=== PATIENT | female | born 1975 | race Caucasian/White ===

== ENCOUNTER → 2018-07-22 14:57 | Outpatient (CLI) | payer OTHER, SELFPAY ==
--- NOTE | 2018-07-22 15:01 | MM_ITS ---
MM Dig screening mamm BI w/CAD CAD Screening COMPARISON: Digital mammograms with CAD 08/19/2015 and 08/10/2014 INDICATION: There is a history breast cancer patient's maternal aunt diagnosed at age 29 TECHNIQUE: Standard CC and MLO images were obtained. R2 CAD reviewed. FINDINGS: There is a diffusely dense and heterogenic parenchymal pattern lessening the sensitivity of mammography. The findings are most prominent in the subareolar regions. There are few scattered benign-appearing calcifications in each breast. There are additional benign-appearing calcifications medially near the cleavage which are likely cutaneous. There is no suspicious lesion in either breast and there are no suspicious microcalcifications. IMPRESSION: Dense parenchymal pattern with no suspicious lesion seen BI-RADS Category: 2 Benign Finding(s) RECOMMENDED FOLLOW-UP: 1YR - 1 YEAR FOLLOW-UP (A letter has been sent to the patient regarding results of the study.)
== END ==
PROVIDERS: Family Provider Physician Assistant; PCP Physician Assistant; Visit Provider Nurse Practitioner Obstetrics & Gynecology
DX: Z12.31 Encounter for screening mammogram for malignant neoplasm of breast (principal)
CPT/HCPCS: 77067

== ENCOUNTER 2018-12-22 18:34 | Emergency (ER) | payer OTHER, SELFPAY ==
[2018-12-22 19:03] VITALS: BP 127/79; PULSE 102; RESP 16; TEMP 37.2; O2SAT 98; BMI 41.1
[2018-12-22 19:17] LABS: Apearance,Urine Clear (Clear); Bilirubin,Urine Negative (Negative); Blood, Urine Negative (Negative); Color,Urine Yellow (Yellow); Glucose,Urine (UA) Negative (Negative); Ketones,Urine Negative (Negative); PH,Urine 5.5 (5.0-8.5); Protein,Urine Negative (Negative); Specific Gravity, Urine 1.025 (1.005-1.030); UTC Leukocyte Esterase,Urine Negative (Negative); UTC Nitrate,Urine Negative (Negative); Urobilinogen,Urine 0.2 EU/dl (0.2)
[2018-12-22 19:19] VITALS: BP 127/79; PULSE 102; RESP 16; TEMP 37.2; O2SAT 98; BMI 39.9
--- NOTE | 2018-12-22 19:53 | HMH.EDUTC ---
[facility] Disposition Clinical Impression: Back pain Qualifiers: Back pain location: low back pain Chronicity: acute Back pain laterality: left Sciatica presence: without sciatica Qualified Code(s): M54.5 - Low back pain Disposition: Home, Self-Care Condition on Discharge: Good Instructions: Low Back Pain Additional Instructions: Take the medications as prescribed. Follow up with your regular doctor. Call them in the morning and get a f/u appointment. The muscle relaxer (flexeril) will make you drowsy, so don't be driving or operating heavy machinery while on it. Rest your back, apply heat or ice as tolerated if it helps. Don't burn yourself with a heating pad if you use one. GO TO THE ER IF YOU HAVE ANY WORSENING OR LIFE THREATENING SYMPTOMS Prescriptions: Cyclobenzaprine HCl [Flexeril 10mg tablet] 10 mg PO TIDP PRN #30 tablet PRN Reason: Muscle Spasm methylPREDNISolone [Medrol] 4 mg PO DIRECTED 6 Days #21 tab.[email or web address] Referrals: Katja Deutsch [Primary Care Provider] - Time of Disposition: 20:17 Medical Decision Making - Medical Records Medical records reviewed: No: I reviewed the patient's medical records. - Anirudh Inquiry Pt receiving controlled substance: No Anirudh was queried for this patient: No Vital Signs: 12/22/18 19:03 12/22/18 19:19 12/22/18 20:17 Temperature 98.9 F 98.9 F 98.8 F Temperature Source Oral Oral Oral Pulse Rate 98 H Pulse Rate [Left Radial] 102 H 102 H Respiratory Rate 16 16 18 Blood Pressure 122/76 Blood Pressure [Right Arm] 127/79 127/79 Blood Pressure Mean [Right Arm] 95 95 Blood Pressure Source [Right Arm] Automatic Cuff Blood Pressure Position [Right Arm] Sitting 02 Sat by Pulse Oximetry 98 98 Oxygen Delivery Method Room Air Room Air Room Air - Lab Data Lab results reviewed: Yes: I reviewed the patient's lab results. Lab Results 12/22/18 19:15: Urine Color Yellow, Urine Appearance Clear, Urine pH 5.5, Ur Specific [place] 1.025, Urine Protein Negative, Urine Glucose (UA) Negative, Urine Ketones Negative, Urine Blood Negative, Urine Nitrate Negative, Urine Bilirubin Negative, Urine Urobilinogen 0.2, Ur Leukocyte Esterase Negative Orders (Tests/Meds): ED MEDICATIONS Discontinued Medications Generic Name Dose Route Start Last Admin Trade Name Dax PRN Reason Stop Dose Admin Cyclobenzaprine HCl 10 mg 12/22/18 20:02 12/22/18 20:05 Flexeril 10mg Tablet PO 12/22/18 20:03 10 mg ONCE ONE Administration Ketorolac Tromethamine 60 mg 12/22/18 20:02 12/22/18 20:05 Toradol 60mg/2ml Vial IM 12/22/18 20:03 60 mg ONCE ONE Administration [facility] HPI - General Stated complaint: lower left back pain Time Seen by Provider: 12/22/18 19:30 Mode of Arrival: Family Vehicle Source of Information: Patient Limitations: No Limitations Description of Symptoms (Recalled from Triage Doc. by RN): to ed per pvt car with c/o lt side lower back pain starting sunday, pt denies any injury, nausea, vomiting, urinary symptoms. HEENT Symptoms (Recalled from RN notes): No Resp Symptoms (Recalled from RN notes): No Skin Symptoms (Recalled from RN notes): No MS Symptoms (Recalled from RN notes): Yes (LEFT LOWER FLANK PAIN) Functional Status (Recalled from RN notes): NA - History of Present Illness Provider Complaint: She c/o lt side lower back pain starting sunday, pt denies any injury, nausea, vomiting, urinary symptoms. - Related Data Previous Rx's Medication Instructions Recorded Cyclobenzaprine HCl [Flexeril 10mg 10 mg PO TIDP PRN #30 tablet 12/22/18 tablet] methylPREDNISolone [Medrol] 4 mg PO DIRECTED 6 Days #21 12/22/18 tab.ds.pk Allergies Allergy/AdvReac Type Severity Reaction Status Date / Time No Known Allergies Allergy Verified 12/22/18 19:23 - Worker's Comp Is this a Worker's Comp case?: No [facility] History - Hepatitis A Screen Drug use hist
--- NOTE | 2018-12-22 19:57 | ED_ITS ---
[facility] [place] Disposition Clinical Impression: Back pain Qualifiers: Back pain location: low back pain Chronicity: acute Back pain laterality: left Sciatica presence: without sciatica Qualified Code(s): M54.5 - Low back pain Disposition: Home, Self-Care Condition on Discharge: Good Instructions: Low Back Pain Additional Instructions: Take the medications as prescribed. Follow up with your regular doctor. Call them in the morning and get a f/u appointment. The muscle relaxer (flexeril) will make you drowsy, so don't be driving or operating heavy machinery while on it. Rest your back, apply heat or ice as tolerated if it helps. Don't burn yourself with a heating pad if you use one. GO TO THE ER IF YOU HAVE ANY WORSENING OR LIFE THREATENING SYMPTOMS Prescriptions: Cyclobenzaprine HCl [Flexeril 10mg tablet] 10 mg PO TIDP PRN #30 tablet PRN Reason: Muscle Spasm methylPREDNISolone [Medrol] 4 mg PO DIRECTED 6 Days #21 tab.ds.pk Referrals: Katja Deutsch [Primary Care Provider] - Time of Disposition: 20:17 Medical Decision Making - Medical Records Medical records reviewed: No: I reviewed the patient's medical records. - Anirudh Inquiry Pt receiving controlled substance: No Anirudh was queried for this patient: No Vital Signs: 12/22/18 19:03 12/22/18 19:19 12/22/18 20:17 Temperature 98.9 F 98.9 F 98.8 F Temperature Source Oral Oral Oral Pulse Rate 98 H Pulse Rate [Left Radial] 102 H 102 H Respiratory Rate 16 16 18 Blood Pressure 122/76 Blood Pressure [Right Arm] 127/79 127/79 Blood Pressure Mean [Right Arm] 95 95 Blood Pressure Source [Right Arm] Automatic Cuff Blood Pressure Position [Right Arm] Sitting 02 Sat by Pulse Oximetry 98 98 Oxygen Delivery Method Room Air Room Air Room Air - Lab Data Lab results reviewed: Yes: I reviewed the patient's lab results. Lab Results 12/22/18 19:15: Urine Color Yellow, Urine Appearance Clear, Urine pH 5.5, Ur Specific [place] 1.025, Urine Protein Negative, Urine Glucose (UA) Negative, Urine Ketones Negative, Urine Blood Negative, Urine Nitrate Negative, Urine Bilirubin Negative, Urine Urobilinogen 0.2, Ur Leukocyte Esterase Negative Orders (Tests/Meds): ED MEDICATIONS Discontinued Medications Generic Name Dose Route Start Last Admin Trade Name Dax PRN Reason Stop Dose Admin Cyclobenzaprine HCl 10 mg 12/22/18 20:02 12/22/18 20:05 Flexeril 10mg Tablet PO 12/22/18 20:03 10 mg ONCE ONE Administration Ketorolac Tromethamine 60 mg 12/22/18 20:02 12/22/18 20:05 Toradol 60mg/2ml Vial IM 12/22/18 20:03 60 mg ONCE ONE Administration [facility] [place] HPI - General Stated complaint: lower left back pain Time Seen by Provider: 12/22/18 19:30 Mode of Arrival: Family Vehicle Source of Information: Patient Limitations: No Limitations Description of Symptoms (Recalled from Triage Doc. by RN): to ed per pvt car with c/o lt side lower back pain starting sunday, pt denies any injury, nausea, vomiting, urinary symptoms. HEENT Symptoms (Recalled from RN notes): No Resp Symptoms (Recalled from RN notes): No Skin Symptoms (Recalled
[2018-12-22 20:17] VITALS: BP 122/76; PULSE 98; RESP 18; TEMP 37.1; O2SAT 100
== END 2018-12-22 20:21 | disposition home or self-care (01) ==
LOC: ER 18:52 → UTC 19:05
PROVIDERS: Emergency Provider Nurse Practitioner Family; PCP Physician Assistant
DX: M54.5 Low back pain (principal)
CPT/HCPCS: 81003; 96372; 99202

== ENCOUNTER → 2019-12-16 08:52 | Outpatient (CLI) | payer OTHER, SELFPAY ==
--- NOTE | 2019-12-16 09:01 | MM_ITS ---
PROCEDURE: MM DIG SCREENING MAMM BI W/CAD CLINICAL INDICATION: SCREENING There is a history of breast cancer patient's maternal aunt diagnosed before menopause. COMPARISON: [facility] DIG MAMM-SCREEN EDNA from 08/10/2014 [facility] DIG MAMM-SCREEN EDNA from 08/19/2015 [facility] MM Dig screening mamm BI w/CAD from 07/22/2018 TECHNIQUE: Standard CC and MLO images and 3D Tomosynthesis was obtained. R2 CAD reviewed. FINDINGS: Moderate diffuse and somewhat heterogenic fibroglandular densities are seen throughout both breasts. There are scattered benign-appearing microcalcifications in each breast many of which are cutaneous. There is stable asymmetric glandular elements right breast. There is no suspicious lesion and no suspicious microcalcifications. IMPRESSION: Stable exam with no suspicious lesions seen BI-RAD Category: 2 Benign Finding(s) FOLLOW-UP: 1YR 1 Year Follow-up (A letter has been sent to the patient regarding results of the study.) Dictated by: Dr. Joseph Valencia MD 12/17/2019 11:[address] Joseph Valencia MD in [place] 12/17/2019 11:54
== END ==
PROVIDERS: PCP Physician Assistant; Visit Provider Nurse Practitioner
DX: Z12.31 Encounter for screening mammogram for malignant neoplasm of breast (principal)
CPT/HCPCS: 77063; 77067

== ENCOUNTER 2020-05-14 13:13 | Emergency (ER) | payer OTHER, SELFPAY ==
[2020-05-14 13:14] VITALS: BP 117/62; PULSE 100; RESP 24; TEMP 36.4; O2SAT 100; BMI 41.5
--- NOTE | 2020-05-14 13:48 | HMH.EDGENADL ---
ED Disposition Clinical Impression: Allergic reaction caused by a drug, UTI (urinary tract infection) Disposition: Home, Self-Care Condition on Discharge: Good Instructions: DI for General Allergic Reactions Prescriptions: diphenhydrAMINE HCL [Benadryl 25mg Capsule] 25 mg PO BID #10 cap Transmission Status: Pending to [facility] cephALEXin [Keflex 500mg Cap] 500 mg PO BID #14 cap Transmission Status: Pending to [facility] methylPREDNISolone [Medrol 4mg tab] 4 mg PO DIRECTED #21 tab Transmission Status: Pending to [facility] Referrals: Provider,Referral, [Primary Care Provider] - Time of Disposition: 15:13 - Critical Care Critical Care Time: No Attestation: On 05/14/20, the high probability of a clinically significant, sudden or life threatening deterioration of the following system(s) required my full and direct attention, intervention and personal management. The time I documented below is in addition to time spent performing reported procedures but includes the following listed in this critical care notation. Medical Decision Making - Medical Records Medical records reviewed: Yes: I reviewed the patient's medical records. - Anirudh Inquiry Pt receiving controlled substance: No Vital Signs: 05/14/20 13:14 05/14/20 14:54 Temperature 97.6 F Temperature Source Oral Pulse Rate [Right] 100 H 89 Respiratory Rate 24 20 Blood Pressure [Right Arm] 117/62 102/59 L Blood Pressure Mean [Right Arm] 80 73 Blood Pressure Source [Right Arm] Automatic Cuff Blood Pressure Position [Right Arm] Supine 02 Sat by Pulse Oximetry 100 98 Oxygen Delivery Method Room Air Room Air Orders (Tests/Meds): ED MEDICATIONS Discontinued Medications Generic Name Dose Route Start Last Admin Trade Name Freq PRN Reason Stop Dose Admin Diphenhydramine HCl 25 mg 05/14/20 13:42 05/14/20 13:48 Diphenhydramine 50mg Capsule PO 05/14/20 13:43 25 mg ONCE ONE Administration Prednisone 60 mg 05/14/20 13:42 05/14/20 13:47 Deltasone 20mg Tablet PO 05/14/20 13:43 60 mg ONCE ONE Administration - Reevaluation(s) Time: 15:11 Reevaluation #1: On reevaluation, the patient is feeling better. No evidence of anaphylaxis. No difficulty breathing. Patient be discharged with a short course of steroids. Antibiotic will be changed for UTI. Patient is to follow-up with PCP in 48 hours. Given strict return precautions. Verbalized understanding. Medical Decision Narrative: This is a 44-year-old female presented to the emergency department with a allergic reaction. Patient has no evidence of anaphylaxis at this time. Patient be treated symptomatically. Placed on continuous monitoring. Reevaluated. General Adult HPI - General Chief complaint: PAIN Stated complaint: possible reaction to antibiotic Time Seen by Provider: 05/14/20 13:18 Mode of Arrival: EMS Limitations: No Limitations Description of Symptoms (Recalled from ER Triage Doc. by RN): pt took her first round of antibiotic this am for uti. short time after she started to feel funny. went to avani madrigal at [facility] and received 50 mg benedryl and a steroid. ems was called and pt was going to deny transfer but then had very sharp pain in her left lower abd. - History of Present Illness HPI narrative: 44-year-old female presented to the emergency department with a possible allergic reaction. Patient was recently diagnosed with a urinary tract infection this morning. She was placed on Bactrim. She states that she took her pill this morning and she started getting very flushed. She had itching all over her body. She got concerned and was sent to the emergency department for evaluation. The patient did not have any difficulties breathing or swelling in the throat or neck. She denied any vomiting or diarrhea. No fevers or chills. Patient states that she has been having some lower abdominal cramping becca
[2020-05-14 14:54] VITALS: BP 102/59; PULSE 89; RESP 20; O2SAT 98
[2020-05-14 15:28] VITALS: BP 104/59; PULSE 83; RESP 16; TEMP 36.9; O2SAT 99
== END 2020-05-14 15:28 | disposition home or self-care (01) ==
PROVIDERS: Emergency Provider Emergency Medicine
DX: L29.9 Pruritus, unspecified (principal); T36.8X5A Adverse effect of other systemic antibiotics, initial encounter; Y92.019 Unspecified place in single-family (private) house as the place of occurrence of the external cause
CPT/HCPCS: 99282

== ENCOUNTER → 2021-01-24 10:40 | Outpatient (CLI) | payer OTHER, SELFPAY ==
--- NOTE | 2021-01-24 10:44 | MM_ITS ---
PROCEDURE: MM DIG SCREENING MAMM BI W/CAD Digital Breast Tomosynthesis Included CLINICAL INDICATION: SCREENING Cancer patient's paternal aunt diagnosed at age 30. COMPARISON: MG [facility] DIG MAMM-SCREEN EDNA from 08/19/2015 [facility] MM Dig screening mamm BI w/CAD from 07/22/2018 MG MM DIG SCREENING MAMM BI W/CAD from 12/16/2019 TECHNIQUE: Standard CC and MLO images and 3D Tomosynthesis was obtained. R2 CAD reviewed. FINDINGS: Prominent somewhat heterogenic fibroglandular densities are seen in both breasts. There are scattered benign-appearing microcalcifications in each breast some of which are cutaneous. There are stable asymmetric glandular elements upper-outer quadrant right breast. CAD markings were reviewed and all appear to be benign. IMPRESSION: Stable somewhat dense parenchymal pattern with no suspicious lesions seen BI-RAD Category: 2 Benign Finding(s) FOLLOW-UP: 1YR 1 Year Follow-up (A letter has been sent to the patient regarding results of the study.) Dictated by: Dr. Joseph Valencia MD 01/25/2021 11:25 Dr. Joseph Valencia MD in [place] 01/25/2021 11:25
== END ==
PROVIDERS: PCP Nurse Practitioner; Visit Provider Nurse Practitioner
DX: Z12.31 Encounter for screening mammogram for malignant neoplasm of breast (principal)
CPT/HCPCS: 77063; 77067

== ENCOUNTER → 2022-03-27 09:49 | Outpatient (CLI) | payer OTHER, SELFPAY ==
--- NOTE | 2022-03-27 09:56 | MM_ITS ---
PROCEDURE INFORMATION: Exam: MG Bilateral Screening 3D Mammography Exam date and time: 03/27/2022 10:05 AM Age: 46 years old Clinical indication: Screening examination. Family history of maternal aunt with breast cancer at age 30. TECHNIQUE: Imaging protocol: Bilateral Screening tomosynthesis and 2D mammography including computer-aided detection (CAD) when performed. COMPARISON: 1. MG MM DIG SCREENING MAMM BI W/CAD 01/24/2021 10:52 AM 2. MG MM DIG SCREENING MAMM BI W/CAD 12/16/2019 9:06 AM 3. MG [facility] MM Dig screening mamm BI w/CAD 07/22/2018 3:59 PM 4. MG DMSB DIG MAMM-SCREEN EDNA 08/19/2015 10:31 AM FINDINGS: MAMMOGRAPHY: Breast composition: The breasts are heterogeneously dense, which may obscure small masses. Mass: None. Architectural distortion: None. Calcifications: No suspicious calcifications. Asymmetric density: None. Skin thickening: None. Axillary adenopathy: None. IMPRESSION: No mammographic evidence of malignancy. Annual screening is recommended unless otherwise clinically indicated. ASSESSMENT: BI-RADS Category 1: Negative
== END ==
PROVIDERS: PCP Nurse Practitioner; Visit Provider Internal Medicine Adolescent Medicine
DX: Z12.31 Encounter for screening mammogram for malignant neoplasm of breast (principal)
CPT/HCPCS: 77063; 77067